=== PATIENT | female | born 1985 | race Caucasian/White ===

== ENCOUNTER → 2019-10-17 | Outpatient (CLI) | payer MEDICARE, OTHER ==
[~2019-10-17] MED LIST: DIPH25CA58 PO; GABA600T7 PO; MELA10TA3 PO; PANT20TA2 PO; SIMV40TA18 PO; SIMV80TA PO
--- NOTE | 2019-10-17 21:57 | PAIN ---
DATE OF SERVICE: 10/17/2019 INITIAL CONSULTATION FOR PAIN CLINIC CHIEF COMPLAINT: 1. Neck pain, upper extremity pain and headaches. 2. Low back and bilateral lower extremity pain. HISTORY OF PRESENT ILLNESS: This is a 34-year-old female who presents with history of pain for many years. At age 10, reports she had an accident as a cheerleader, fell and broke C5 and C6 vertebrae, then fell more recently and has fracture in her lumbar spine as well. The patient reports she has had pain for many, many years, causing migraine headaches, worse of the pain in the base of the neck and shoulders, upper extremities with radiation to both the arms on occasion, but not constantly. The patient also reports pain in the low back radiating to bilateral lower extremities, more on the right than the left in the posterior gluteus and thighs as well. The patient reports it is worse with walking, standing, changing positions, difficulty with sleeping at night, awakens her at least once or twice a night, does not affect her bowel or bladder control, and it does not affect her ability to walk significantly. She has had physical therapy in the past as well as chiropractic treatment, which has been ongoing for many years, which is temporarily helpful, but not overall. The patient reports she has taken Tylenol No. 3, hydrocodone, Flexeril and none of which have decreased the pain very significantly, all within the last 3 months or so. The patient reports the pain is constant, sharp, stabbing, throbbing in the neck and shoulders, tingling and burning in the low back radiating to the lower extremities, radiating to the upper extremities, aching in quality as well. The patient rates her disability rating from 0-10, 10 being the worst, is an 8 with family and home responsibilities, recreation, social activity, occupation and sexual behavior, 4 with self-care and life support activities. The patient has not had any diagnostic studies at this time within the cervical distribution, upper back, mid back or low back. The patient reports no loss of motor function, but significant fatigability in the upper extremities with repetitive motions, reaching over her head with her hands or lifting items up above the level of the waist, also increased pain in the lower extremities with walking, standing, getting up from a seated position, especially in the low back. PAST MEDICAL HISTORY: Significant for cigarette smoking half pack a day for the past 20 years, cervical cancer in 2012, hiatal hernia, hypercholesterolemia, bipolar disorder, depression. PREVIOUS SURGERY: Includes hysterectomy in 2012, cholecystectomy in 2010 and a laparotomy in 2006. CURRENT MEDICATIONS: Include simvastatin, Zocor, melatonin, gabapentin, Benadryl and Protonix. ALLERGIES: THE PATIENT IS ALLERGIC TO IMITREX, MORPHINE, SUDAFED, LATEX AND SILK TAPES, NUBAIN, GUAIFENESIN, DILAUDID AND DEXTROMETHORPHAN. FAMILY HISTORY: Significant for strokes, diabetes, hypertension, cancer, cholesterol, heart attacks. SOCIAL HISTORY: The patient does not drink alcohol. Smokes about half a pack of cigarettes per day and continues to smoke for past 20 years. Does not use any illegal, illicit or recreational drugs. She is , lives with her spouse, has 3 children living at home, lives locally in [place], [place]. REVIEW OF SYSTEMS: The patient's review of systems is positive for those items mentioned in history of present illness. All systems reviewed and otherwise negative. It is complete, full and well documented on the patient's chart. The patient reports she is on disability currently related to her current pain condition. PHYSICAL EXAMINATION: VITAL SIGNS: The patient's blood pressure 141/98, pulse 74, respirations 18, temperature 98.2 degrees Fahrenheit, height is 5 feet 7 inches, weighs 240 pounds. GENERAL: The patient is awake, alert, oriented, appropriate, very pleasant demeanor. HEENT: Head shows normocephalic, atraumatic. Extraocular movements are intact and symmetrical. Oral cavity shows mucous membranes moist and pink. Dentition is intact. NECK: Shows anterior throat supple without palpable lymphadenopathy noted. Swallow reflex symmetrical. CHEST: Shows normal on inspection. Breath sounds clear to auscultation bilaterally. HEART: Shows S1, S2 clear. No murmurs auscultated. ABDOMEN: Soft, nontender, nondistended. No palpable organomegaly is noted. No rebound or guarding demonstrated. BACK: Shows spine grossly in the midline. Normal appearing cervical lordotic curvature, thoracic kyphotic curvature and lumbar lordotic curvature. No previous surgical scars are noted. Paraspinous musculature in the cervical distribution shows symmetrical on inspection, with palpation shows some moderate tenderness diffusely bilaterally, but only diffusely without significant radiation. The patient has good rotational motion of cervical spine, both laterally greater than 45 degrees closer to 90 degrees as well as full extension, full forward flexion with some moderate pulling and pain sensation with extension and flexion only in the base of the neck bilaterally, right equal to left. The patient's low back shows lumbar paraspinous musculature shows symmetrical on inspection, with palpation shows some moderate tenderness diffusely throughout the upper, middle and lower distribution of paraspinous muscles bilaterally, but without trigger points, without evidence of atrophy, hypertrophy or without asymmetry. The patient has good rotational motion of lumbar spine, both laterally greater than 10 degrees right and left as well as full extension, 10 degrees forward flexion and full forward flexion 45 degrees without significant pain reported. No tenderness over the spinous processes, sacrum or sacroiliac regions. EXTREMITIES: The patient's upper extremities show deep tendon reflexes 2+ in the biceps and triceps tendons. 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 Peripheral pulses are 2+ radial distribution. Shoulder shrug is strong and intact without loss of strength on resistance with some mild pain in the bilateral shoulders, the superior medial aspect of the trapezius, but without loss of strength on resistance. This is true with abduction of the shoulders 90 degrees as well bilaterally. Lower extremities show deep tendon reflexes 1+ in the patellar and tendo calcaneus tendons. Motor exam is strong with 5/5 dorsiflexion, extension, quadriceps and hamstring flexion. Peripheral pulses are 1+ posterior tibia. No peripheral edema bilaterally. Lower extremities are warm and dry to touch, equal in color and appearance. Straight leg raising noted to be negative for reproduction of radicular symptoms bilaterally. Gaenslen's and Mirza's maneuvers are negative bilaterally as well. The patient is able to stand, stand on her toes without significant difficulty or loss of balance, walks with a normal appearing gait, does not appear to favor the right or left lower extremity with ambulation, not using any assistive devices such as canes or walkers to ambulate. SKIN: Shows warm and dry, good turgor. No edema. No sores, rashes or bruising throughout. IMPRESSION: 1. This is a 34-year-old female with long history of pain in the base of the neck, shoulders, upper back, migraines as well as low back pain and bilateral lower extremity pain. 2. Cigarette smoking. 3. History of cervical cancer. 4. Depression and bipolar disorder. PLAN: Options were discussed with the patient including conservative medical management, physical therapies and interventional techniques and first we will obtain MRI scans of both the cervical and lumbar spine as she has had no diagnostic studies performed at this time and better differentiate any abnormalities in these regions that could be responsible for some of the pain conditions in these regions. Once these are obtained, we will have the patient return and discuss the results and proceed from there. PRATEEK COLINDRES MD DR: RADHA/julita JOB#: [id number] / [id number]
== END | disposition home or self-care (01) ==
LOC: PNCL 10:48
PROVIDERS: ATTEND Anesthesiology
DX: M54.2 Cervicalgia (principal); M54.5 Low back pain; M79.605 Pain in left leg; M79.604 Pain in right leg; R51 Headache; F31.9 Bipolar disorder, unspecified; F17.210 Nicotine dependence, cigarettes, uncomplicated; Z85.41 Personal history of malignant neoplasm of cervix uteri; E78.00 Pure hypercholesterolemia, unspecified; Z88.5 Allergy status to narcotic agent; Z88.2 Allergy status to sulfonamides; Z88.8 Allergy status to other drugs, medicaments and biological substances; Z90.49 Acquired absence of other specified parts of digestive tract; Z90.710 Acquired absence of both cervix and uterus; Z91.040 Latex allergy status
CPT/HCPCS: G0463

== ENCOUNTER → 2019-10-22 | Outpatient (CLI) | payer MEDICARE, OTHER ==
--- NOTE | 2019-10-22 15:34 | RAD ---
CERVICAL SPINE WO CONTRAST History: Neck pain. Bilateral hand radiculopathy. Technique: Multiplanar, multi sequential noncontrast MR imaging was performed of the cervical spine. Comparison: None Findings: Normal vertebral body height and alignment. No fracture. No pathologic signal abnormality within the cervical spinal cord. Enlarged left level 2 lymph node measures 1.4 x 1.3 cm. C2-C3: No canal or neuroforaminal narrowing. C3-C4: No canal narrowing. Right uncovertebral hypertrophy. Mild right neuroforaminal narrowing. No left neuroforaminal narrowing. C4-C5: Small posterior disc bulge. No canal narrowing. No neuroforaminal narrowing. C5-C6: Small posterior disc bulge. Minimal cord flattening. No canal narrowing. Uncovertebral hypertrophy. Mild right neuroforaminal narrowing. No left neuroforaminal narrowing. C6-C7: Posterior disc bulge. Mild cord flattening. No canal narrowing. Uncovertebral hypertrophy on the right. Mild right neuroforaminal narrowing. No left neuroforaminal narrowing. C7-T1: No canal or neuroforaminal narrowing. Impression: 1. Mild multilevel cervical spondylosis most prominent C5-C6 and C6-C7. 2. Enlarged left level [address] soft tissue neck with contrast to further evaluate. Electronically signed by: Holland Byers DO (10/22/2019 3:32 PM) [email or web address]
--- NOTE | 2019-10-22 15:40 | RAD ---
LUMBAR SPINE WO CONTRAST History: Low back pain. Technique: Multiplanar, multi sequential MR imaging was performed of the lumbar spine. Comparison: None Findings: T12 superior endplate Schmorl's node. Chronic anterior T11 and T12 vertebral body wedging. No acute fracture. No pathologic marrow placing process. L5-S1 degenerative endplate changes. Conus terminates at the normal location. No evidence of nerve root clumping. L1-L2: No canal or neuroforaminal narrowing. L2-L3: No canal or neuroforaminal narrowing. L3-L4: No canal or neuroforaminal narrowing. L4-L5: Disc height loss. Small posterior disc bulge. Central annular fissure. Mild facet arthropathy. No canal narrowing. No neuroforaminal narrowing. L5-S1: Disc height loss. Broad-based disc bulge. Central annular fissure. No canal narrowing. Mild bilateral neural foraminal narrowing. Impression: 1. Mild lower lumbar spondylosis most prominent L5-S1. 2. Mild L5-S1 neural foraminal narrowing. Electronically signed by: Holland Byers DO (10/22/2019 3:37 PM) [facility]
== END | disposition home or self-care (01) ==
LOC: MRI 14:25
PROVIDERS: ATTEND Anesthesiology
DX: M47.22 Other spondylosis with radiculopathy, cervical region (principal); M47.816 Spondylosis without myelopathy or radiculopathy, lumbar region; M48.061 Spinal stenosis, lumbar region without neurogenic claudication
CPT/HCPCS: 72141; 72148

== ENCOUNTER → 2019-10-23 | Outpatient (CLI) | payer MEDICARE, OTHER ==
--- NOTE | 2019-10-24 00:01 | PAIN ---
DATE OF SERVICE: 10/23/2019 PROGRESS NOTE FOR PAIN CLINIC DIAGNOSES: 1. Cervical radiculopathy with cervical degenerative disk disease. 2. Lumbar radiculopathy with lumbar degenerative disk disease. HISTORY OF PRESENT ILLNESS: The patient is a 34-year-old female who returns for followup status post initial evaluation and MRI scans ordered, which are returned now. The patient has returned for review of the MRI scans today. We discussed both the cervical and lumbar spine findings with her showing mild multiple cervical spondylosis, most prominent at C5-C6 and C6-C7 and lumbar spine showing mild lower lumbar spondylosis, most prominent at L5-S1 with small disk bulge at L4-L5 as well. The patient reports still significant pain in the base of neck and shoulders bilaterally as well as low back pain and lower extremity pain bilaterally in the posterior gluteus, posterior lateral thighs. The patient reports no new motor or sensory deficits, no new changes. The patient rates her pain as a 10 on a scale of 10 at its worst over the past week, 10 on average, 7 at its least and is a 7 today. The patient reports no new motor or sensory deficits, no new bowel or bladder incontinence or other complaints. The patient describes the pain in the neck and the back as aching, sharp, tight, stabbing with some shooting pains in the upper extremities as well as lower extremities, becoming more constant, severe, unbearable with activity, better with sitting or lying down, generally it does not awaken her from sleep, however. PHYSICAL EXAMINATION: VITAL SIGNS: The patient's blood pressure is 138/94, pulse 89, respirations 16, temperature is 98.0 degrees Fahrenheit, height is 5 feet 7 inches, and weight is 240 pounds. GENERAL: The patient is awake, alert, oriented, appropriate, very pleasant demeanor. HEENT: Head shows normocephalic, atraumatic. Extraocular movements are intact and symmetrical. Oral cavity: Mucous membranes are moist and pink. Dentition is intact. NECK: Shows anterior throat supple without palpable lymphadenopathy noted. Swallow reflex symmetrical. CHEST: Shows normal on inspection. Breath sounds are clear bilaterally. HEART: Shows S1, S2 clear. ABDOMEN: Soft, nontender, and nondistended. BACK: Shows spine grossly in the midline. Cervical paraspinous muscle shows symmetrical on inspection, with palpation shows some moderate tenderness diffusely in the middle and lower distribution of paraspinous muscles and into the superior medial trapezius bilaterally, but without radiation. The patient shows full rotational motion of cervical spine, both laterally as well as extension and flexion without significant increase in pain. EXTREMITIES: Lower back shows paraspinous musculature of the lumbar distribution symmetrical with some moderate tenderness throughout the upper, middle and lower distribution of paraspinous muscles bilaterally, again diffusely without radiation or asymmetry. No trigger points noted bilaterally. No tenderness over the sacrum or sacroiliac regions. EXTREMITIES: The patient's upper extremities show upper extremity deep tendon reflexes are 2+ in the biceps, triceps tendons. Motor exam is approximately 3-4 on a scale of 5 bilaterally. Lower extremities show 5/5 at dorsiflexion, extension, quadriceps and hamstring flexion. Peripheral pulses are 2+ radial, 1+ posterior tibial. No edema in upper or lower extremities bilaterally. PLAN: Options were discussed with the patient. The patient's old chart was reviewed as her current medication regimen updated. Current review of systems updated today as well. We will have the patient return for cervical epidural steroid injections as her chief complaint is neck and upper extremity pain. The patient does have 2 young children with her today. I would like to reschedule when they are in school. We will make these arrangements and have the patient return in approximately 1 week for cervical epidural steroid injection at that time. The patient is also requesting a prescription for cyclobenzaprine. We will give her a prescription for the cyclobenzaprine 10 mg 1 tablet up to 3 times daily as directed. The patient was given instructions as well as side effects to be aware of with the medication and will follow up in approximately 1 week as scheduled. PRATEEK COLINDRES MD DR: RADHA/julita JOB#: [id number] / [id number]
== END | disposition home or self-care (01) ==
LOC: PNCL 14:20
PROVIDERS: ATTEND Anesthesiology
DX: M51.16 Intervertebral disc disorders with radiculopathy, lumbar region (principal); M50.10 Cervical disc disorder with radiculopathy, unspecified cervical region
CPT/HCPCS: G0463

== ENCOUNTER → 2019-10-30 | Outpatient (CLI) | payer MEDICARE, OTHER ==
[~2019-10-30] MED LIST changes: +HYDR-2761 PO; +IOHEXOL 300 MG/ML 100ML VIAL. IV ONE; +OXYC1TAB15 PO
--- NOTE | 2019-10-30 15:16 | [facility] ---
EXAM: CT Neck with IV contrast INDICATION: Cervical adenopathy seen on recent MRI TECHNIQUE: Multiple contiguous axial images were obtained of the neck with the use of IV contrast. Post-processing reconstructed images were obtained for interpretation. All CT scans performed at this facility utilize dose optimization techniques as appropriate to the exam, including the following: Automated exposure control and adjustment of the mA and/or KV according to patient size (this includes techniques or standardized protocols for targeted exams where dose is indication/reason for exam). IV CONTRAST: Administered COMPARISON: C-spine MRI of 10/22/2019 FINDINGS: INTRACRANIAL STRUCTURES & ORBITS: Unremarkable. AERODIGESTIVE: The nasal cavity, nasopharynx, oral cavity, oropharynx, hypopharynx, larynx, and visualized trachea and esophagus demonstrate no masses or abnormal enhancement. CERVICAL LYMPH NODES & SOFT TISSUES: Cervical adenopathy is redemonstrated, largest lymph nodes at level 2 measuring 1.5 cm short axis diameter. THYROID & SALIVARY GLANDS: Unremarkable. LUNG APICES: Minimal groundglass attenuation to the lung apices is present. OSSEOUS: Unremarkable IMPRESSION: Cervical adenopathy with no neck mass or fluid collection noted. Correlate for any viral infection currently. Electronically signed by: Linda Lilly MD (10/30/2019 3:14 PM) [facility]
== END | disposition home or self-care (01) ==
LOC: KCIC CT 09:18
PROVIDERS: ATTEND Family Medicine
DX: R59.0 Localized enlarged lymph nodes (principal)
CPT/HCPCS: 70491; Q9967

== ENCOUNTER → 2019-10-31 | Outpatient (CLI) | payer MEDICARE, OTHER ==
[~2019-10-31] MED LIST changes: +IOHEXOL 180 MG/ML 10 ML VIAL. ONE; -IOHEXOL 300 MG/ML 100ML VIAL. IV ONE; -OXYC1TAB15 PO; +methylPREDNISolone ACETATE 40 MG/ML VIAL. ONE; +methylPREDNISolone ACETATE 80 MG/ML VIAL. ONE
--- NOTE | 2019-10-31 11:41 | PAIN ---
DATE OF SERVICE: 10/31/2019 PROGRESS NOTE FOR PAIN CLINIC DIAGNOSES: 1. Cervical radiculopathy with cervical degenerative disk disease. 2. Lumbar radiculopathy with lumbar degenerative disk disease. HISTORY OF PRESENT ILLNESS: The patient is a 34-year-old female, who returns for followup, status post evaluation and returns today for cervical epidural steroid injection. The patient reports still significant pain in the base of the neck and into the shoulders bilaterally and in the upper extremities as previously. The patient reports no new motor or sensory deficits. Reports her pain is 10 on a scale of 10 at its worst over the past week, 8 on average, 6 at its least and is an 8 today. The patient reports it is aching, dull, tight, shooting across the shoulders and neck as well as into the upper extremities, burning, cramping, stabbing pain, also some pain in the low back, which is becoming more dull and shooting as well as tight and constant. The patient reports it is better with sitting or lying down, awakens her from sleep at least 4-5 times at night with the neck and shoulders. The patient reports no new motor or sensory deficits, no new bowel or bladder incontinence or other complaints. PHYSICAL EXAMINATION: VITAL SIGNS: The patient's blood pressure 137/85, pulse 101, respirations 18, temperature 97.4 degrees Fahrenheit, height is 5 feet 7 inches, weight is 246 pounds. GENERAL: The patient is awake, alert, oriented, appropriate, very pleasant demeanor. HEENT: Shows normocephalic, atraumatic. Extraocular movements are intact and symmetrical. Oral cavity: Mucous membranes moist and pink. Dentition is intact. NECK: Shows anterior throat supple without palpable lymphadenopathy noted. Swallow reflex symmetrical. CHEST: Shows normal on inspection. Breath sounds are clear to auscultation bilaterally. HEART: Shows S1, S2 clear. No murmurs auscultated. ABDOMEN: Soft, nontender, nondistended. No palpable organomegaly is noted. No rebound or guarding demonstrated. BACK: Shows spine grossly in the midline. Cervical paraspinous muscle shows symmetrical on inspection, on palpation shows some moderate tenderness diffusely bilaterally but only diffusely without significant radiation. The patient has good rotational motion of cervical spine, both laterally as well as extension and flexion without significant increase in pain. EXTREMITIES: The patient's upper extremities show deep tendon reflexes at 2+ in the biceps and triceps tendons. 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 Lower extremities show deep tendon reflexes 1+ in the patellar and tendo calcaneus tendons. Motor exam is strong with 5/5 dorsiflexion, extension, quadriceps and hamstring flexion. Peripheral pulses are 2+ radial and 1+ posterior tibial. Options were discussed with the patient. The patient's old chart was reviewed as her current medication regimen updated. Current review of systems updated today as well. We will proceed with a cervical epidural steroid injection today with fluoroscopic guidance. Risks were again discussed including, but not limited to bleeding, infection, possibility of epidural hematoma, subsequent neurological compromise, dural punctures, headaches, spinal cord and/or nerve damage, side effects of steroid medication as well as poor results regarding pain control. The patient understands and wished to proceed. The patient will return to clinic in approximately 2 weeks for followup. She was counseled on return appointment, activity level and side effects to be aware of. DIAGNOSES: Cervical radiculopathy with cervical degenerative disk disease. PROCEDURE: Cervical epidural steroid injection, translaminar approach at C6-C7 level using C-arm fluoroscopic guidance under sterile prep and drape using local anesthetic. MEDICATION INJECTED: A total of 120 mg Depo-Medrol plus 5 mL of preservative-free normal saline and 2 mL of contrast. CONDITION AT DISCHARGE: Stable. The patient tolerated procedure well, had no complications. PRATEEK COLINDRES MD DR: RADHA/julita JOB#: [id number] / [id number]
== END ==
LOC: PNCL 09:05
PROVIDERS: ATTEND Anesthesiology
DX: M50.123 Cervical disc disorder at C6-C7 level with radiculopathy (principal); M51.16 Intervertebral disc disorders with radiculopathy, lumbar region
CPT/HCPCS: 62321; J1030; J1040; Q9965

== ENCOUNTER 2019-11-05 15:20 | Emergency (ER) | payer MEDICARE, OTHER ==
[~2019-11-05] VITALS: Ht 170.2 cm; Wt 108.6 kg
[~2019-11-05 15:20] MED LIST changes: -IOHEXOL 180 MG/ML 10 ML VIAL. ONE; -methylPREDNISolone ACETATE 40 MG/ML VIAL. ONE; -methylPREDNISolone ACETATE 80 MG/ML VIAL. ONE
[2019-11-05 16:40] VITALS: BP 132/82
[2019-11-05] MEDS: IV NORMAL SALINE 1000ML BAG 1,000 ML IV SCH (17:00)
[2019-11-05] MEDS: fentaNYL PF VIAL 100 MCG/2 ML VIAL IVP ONE (17:00)
[2019-11-05 17:05] LABS: BASO % 0 % (0-3); EOS # 0.1 x10^3/uL (0.0-0.7); EOS % 0 % (0-3); HEMATOCRIT 40.7 % (36.0-47.0); HEMOGLOBIN 13.6 g/dL (12.0-15.5); LYMPH # 3.7 x10^3/uL (1.0-4.8); LYMPH % 28 % (24-48); MEAN CORPUSCULAR HEMOGLOBIN 30 pg (25-35); MEAN CORPUSCULAR HGB CONC 34 g/dL (31-37); MEAN CORPUSCULAR VOLUME 90 fL (79-100); MONO # 0.7 x10^3/uL (0.0-1.1); MONO % 5 % (0-9); NEUT # 8.9 x10^3/uL (1.8-7.7); NEUT % 66 % (31-73); PLATELET COUNT 165 x10^3/uL (140-400); RED BLOOD COUNT 4.51 x10^6/uL (3.50-5.40); RED CELL DISTRIBUTION WIDTH 13.9 % (11.5-14.5); WHITE BLOOD COUNT 13.4 x10^3/uL (4.0-11.0)
[2019-11-05 17:06] LABS: BILIRUBIN,URINE NEGATIVE (NEG); CLARITY,URINE CLOUDY; COLOR,URINE YELLOW; NITRITE,URINE NEGATIVE (NEG); PROTEIN,URINE NEGATIVE (NEG-TRACE); UROBILINOGEN,URINE 0.2 mg/dL (0.2 mg/dL)
[2019-11-05 17:12] LABS: SQUAMOUS EPITHELIAL CELL,UR MANY /LPF
[2019-11-05 17:13] LABS: CALCIUM 8.4 mg/dL (8.5-10.1); CREATININE 0.8 mg/dL (0.6-1.0); GFR 81.2; POTASSIUM 3.6 mmol/L (3.5-5.1)
[2019-11-05 17:13] LABS: BACTERIA,URINE MODERATE /HPF (0-FEW)
[2019-11-05 17:16] LABS: PROTHROMBIN TIME PATIENT 11.5 SEC (11.7-14.0)
[2019-11-05 17:21] LABS: ALBUMIN 3.4 g/dL (3.4-5.0); ALBUMIN/GLOBULIN RATIO 1.1 (1.0-1.7); TOTAL BILIRUBIN 0.2 mg/dL (0.2-1.0); TOTAL PROTEIN 6.4 g/dL (6.4-8.2)
--- NOTE | 2019-11-05 17:39 | PHYS DOC ---
Past Medical History Past Medical History: Anxiety, Bipolar, Depression, Migraines Past Surgical History: Cholecystectomy, Hysterectomy Smoking Status: Current Every Day Smoker Alcohol Use: Occasionally Adult General Chief Complaint Chief Complaint: ABDOMINAL PAIN HPI HPI Patient is a 34 year old female who presents with went to the pain management clinic and had a cervical epidural done on this past Tuesday by Dr. Fowler. Patient states that he needs to begin having a really bad headache that is better when she is laying down when she is up and standing up and moving or sneezing and coughing becomes unbearable and she's been having neck stiffness also. She states she went to [facility] and they gave her some medications for migraine that did not help and they called Dr. Fowler in he didn't think it was related and she was sent home. She states she does have photophobia. She states the headache is generalized all over. She states she's been drinking plenty of fluids using ice and water naproxen and hydrocodone. Last naproxen was at noon. She denies numbness or tingling, incontinence, vision changes, chest pain, shortness of air, fever, abdominal pain, nausea, vomiting, diarrhea, chills, focal weakness. Rates her pain a 10 out of 10. Review of Systems Review of Systems Eyes: Denies change in visual acuity, redness, or eye pain. Photophobia [] Neurologic: headache, denies focal weakness or sensory changes [] All other systems were reviewed and found to be within normal limits, except as documented in this note. Current Medications Current Medications Current Medications Medications (Trade) Dose Ordered Sig/[facility] Start Time Stop Time Status Last Admin Dose Admin Diphenhydramine HCl (Benadryl) 25 mg 1X ONCE 11/05/19 17:30 11/05/19 17:31 DC 11/05/19 18:17 25 MG Fentanyl Citrate (Fentanyl 2ml Vial) 50 mcg 1X ONCE 11/05/19 17:00 11/05/19 17:01 DC 11/05/19 17:00 50 MCG Ketorolac Tromethamine (Toradol 30mg Vial) 30 mg 1X ONCE 11/05/19 17:30 11/05/19 17:31 DC 11/05/19 18:18 30 MG Prochlorperazine Edisylate (Compazine) 10 mg 1X ONCE 11/05/19 17:30 11/05/19 17:31 DC 11/05/19 18:18 10 MG Sodium Chloride 1,000 ml @ 1,000 mls/hr Q1H 11/05/19 16:47 11/05/19 17:46 DC 11/05/19 17:00 1,000 MLS/HR Allergies Allergies Allergies Coded Allergies Type Severity Reaction Last Updated Verified dextromethorphan Allergy Severe 11/05/19 Yes guaifenesin Allergy Severe 11/05/19 Yes pseudoephedrine Allergy Severe Anaphylaxis 11/05/19 Yes hydromorphone Allergy Intermediate Itching 11/05/19 Yes latex Allergy Intermediate 11/05/19 Yes morphine Allergy Intermediate Itching 11/05/19 Yes nalbuphine Allergy Intermediate Itching 11/05/19 Yes sumatriptan Allergy Intermediate 11/05/19 Yes Uncoded Allergies Type Severity Reaction Last Updated Verified silk tape Allergy Unknown 10/17/19 Physical Exam Physical Exam Constitutional: Well developed, well nourished, no acute distress, non-toxic appearance. [] HENT: Normocephalic, atraumatic, bilateral external ears normal, oropharynx moist, no oral exudates, nose normal. [] Eyes: PERRLA, EOMI, conjunctiva normal, no discharge. [] Neck: Normal range of motion, no tenderness, supple, no stridor. [] Cardiovascular:Heart rate regular rhythm, no murmur [] Lungs & Thorax: Bilateral breath sounds clear to auscultation [] Abdomen: Bowel sounds normal, soft, no tenderness, no masses, no pulsatile erica s. [] Skin: Warm, dry, no erythema, no rash. [] Back: No tenderness, no CVA tenderness. [] Extremities: No tenderness, no cyanosis, no clubbing, ROM intact, no edema. [] Neurologic: Alert and oriented X 3, normal motor function, normal sensory function, no focal deficits noted. [] Psychologic: Affect normal, judgement normal, mood normal. Normal Physical Exam[] Current Patient Data Vital Signs Vital Signs Date Time Temp Pulse Resp B/P (MAP) Pulse Ox O2 Delivery O2 Flow Rate FiO2 11/05/19 16:40 98.2 94 16 132/82 (99) 98 Room Air 98.2 Lab Values Laboratory Tests Test 11/05/19 16:20 11/05/19 16:40 Urine Collection Type Unknown Urine Color Yellow Urine Clarity Cloudy Urine pH 6.0 Urine Specific [place] 1.015 Urine Protein Negative mg/dL (NEG-TRACE) Urine Glucose (UA) 100 mg/dL (NEG) Urine Ketones (Stick) Negative mg/dL (NEG) Urine Blood Negative (NEG) Urine Nitrite Negative (NEG) Urine Bilirubin Negative (NEG) Urine Urobilinogen Dipstick 0.2 mg/dL (0.2 mg/dL) Urine Leukocyte Esterase Negative (NEG) Urine RBC 1-2 /HPF (0-2) Urine WBC 1-4 /HPF (0-4) Urine Squamous Epithelial Cells Many /LPF Urine Bacteria Moderate /HPF (0-FEW) Urine Mucus Marked /LPF White Blood Count 13.4 x10^3/uL (4.0-11.0) H Red Blood Count 4.51 x10^6/uL (3.50-5.40) Hemoglobin 13.6 g/dL (12.0-15.5) Hematocrit 40.7 % (36.0-47.0) Mean Corpuscular Volume 90 fL (79-100) Mean Corpuscular Hemoglobin 30 pg (25-35) Mean Corpuscular Hemoglobin Concent 34 g/dL (31-37) Red Cell Distribution Width 13.9 % (11.5-14.5) Platelet Count 165 x10^3/uL (140-400) Neutrophils (%) (Auto) 66 % (31-73) Lymphocytes (%) (Auto) 28 % (24-48) Monocytes (%) (Auto) 5 % (0-9) Eosinophils (%) (Auto) 0 % (0-3) Basophils (%) (Auto) 0 % (0-3) Neutrophils # (Auto) 8.9 x10^3/uL (1.8-7.7) H Lymphocytes # (Auto) 3.7 x10^3/uL (1.0-4.8) Monocytes # (Auto) 0.7 x10^3/uL (0.0-1.1) Eosinophils # (Auto) 0.1 x10^3/uL (0.0-0.7) Basophils # (Auto) 0.0 x10^3/uL (0.0-0.2) Prothrombin Time 11.5 SEC (11.7-14.0) L Prothrombin Time INR 0.9 (0.8-1.1) Sodium Level 142 mmol/L (136-145) Potassium Level 3.6 mmol/L (3.5-5.1) Chloride Level 107 mmol/L (98-107) Carbon Dioxide Level 26 mmol/L (21-32) Anion Gap 9 (6-14) Blood Urea Nitrogen 11 mg/dL (7-20) Creatinine 0.8 mg/dL (0.6-1.0) Estimated GFR (Cockcroft-Gault) 81.2 BUN/Creatinine Ratio 14 (6-20) Glucose Level 169 mg/dL (70-99) H Calcium Level 8.4 mg/dL (8.5-10.1) L Total Bilirubin 0.2 mg/dL (0.2-1.0) Aspartate Amino Transferase (AST) 24 U/L (15-37) Alanine Aminotransferase (ALT) 42 U/L (14-59) Alkaline Phosphatase 63 U/L (46-116) Total Protein 6.4 g/dL (6.4-8.2) Albumin 3.4 g/dL (3.4-5.0) Albumin/Globulin Ratio 1.1 (1.0-1.7) Laboratory Tests 11/05/19 16:40 Laboratory Tests 11/05/19 16:40 EKG EKG [] Radiology/Procedures Radiology/Procedures [] Impressions: [facility] [address] [place] [address] IMAGING REPORT Signed PATIENT: JENNA CULLEN ACCOUNT: [id number] : 1985 LOCATION: ER AGE: 34 SEX: F EXAM STATUS: REG ER ORD. PHYSICIAN: DAYANARA GODOY APRN REASON: HEADACHE S/P CERVICAL EPIDURAL LAST TUESDAY PROCEDURE: CT HEAD AND CERVICAL SPINE WO CT Head W/O Contrast: History: Headache status post cervical epidural Comparison: none Axial images were obtained without contrast. The keith and white matter appears normal and symmetrical for the patients age. There is no mass effect, extraaxial fluid collections or hydrocephalus. There is no gross bleed. There is no focal loss of keith-white matter distinction to suggest acute ischemia, i.e. stroke. Impression: No acute findings. End impression CT C-Spine without contrast: Clinical History: Technique: Axial helical images of the cervical spine were obtained without contrast, axial coronal and sagittal reconstruction was performed. Findings: There is no loss of vertebral body stature. There is no prevertebral soft tissue swelling. The vertebral bodies are well aligned. The C1-C2 relationship is normal. The visualized osseous structures appear normal. There is mild reversal of the normal cervical lordosis which can be positional or can be secondary to muscle spasm. Evaluation of the central canal is limited without contrast. There is multiple small lymph nodes bilaterally and there is a lymph node anterior to the left sternocleidomastoid muscle that measures 1.0 cm in its short axis. Impression: 1. Mild lymphadenopathy of uncertain etiology. 2. No acute findings of the C-spine. End impression Clinical correlation suggested. PQRS Compliance Statement: One or more of the following individualized dose reduction techniques were utilized for this examination: 1. Automated exposure control 2. Adjustment of the mA and/or kV according to patient size 3. Use of iterative reconstruction technique Electronically signed by: Michelle Tadeo III, MD (11/05/2019 6:03 PM) [id number] DICTATED and SIGNED BY: MICHELLE TADEO III, MD DATE: 11/05/191802 Course & Med Decision Making Course & Med Decision Making Pertinent Labs and Imaging studies reviewed. (See chart for details) Alert and oriented. Speaks in full clear sentences. Skin pink warm and dry. Patient does have full range of motion of her neck. No tenderness to her neck. PERRLA. Moves all extremities equally with equal strength. Ambulatory with a steady gait. Negative NIH. Vital signs within normal limits. Lungs are clear to auscultation all lobes. Patient has a normal exam. I have called and spoke to Donnie with anesthesia and called his staff and no one feels comfortable doing a blood patch on the patient. We have called Dr Fowler off [place] and he is no longer there as the office is closed. We have tried the p ager for the doctor and it states disconnected. Anesthesia states to send the patient home and have her rest in bed and hydrate. After medications are given Patient's pain continues to be uncontrolled. Patient states she does not want to go home and follow up and continue with her pain. I will admit her to the hospital for pain control and consult anesthesiologist and Dr. Fowler. 1850: Patient is now refusing admission states she wants to go home. She states she will call Dr. Fowler in follow-up. Patient is stable but her pain is uncontrolled. I have told the patient will be best for her to stay in the hospital so she can get this taken care of and she can be observed. Patient is now refusing admission. [] Dragon Disclaimer Dragon Disclaimer This electronic medical record was generated, in whole or in part, using a voice recognition dictation system. Departure Departure Impression: Primary Impression: Headache Disposition: HOME, SELF-CARE Condition: STABLE Referrals: RAHUL SU (PCP) Patient Instructions: General Headache Without Cause Additional Instructions: Call Dr Fowler. Take medications as prescribed and with food. Scripts Oxycodone/Apap 5-325 (PERCOCET 5-325 MG TABLET ) 1 Each Tablet 1 TAB PO PRN Q6HRS PRN for PAIN, #10 TAB 0 Refills Prov: DAYANARA GODOY APRN 11/05/19 Problem Qualifiers Primary Impression: Headache Headache type: unspecified Headache chronicity pattern: episodic headache Intractability: intractable Qualified Codes: R51 - Headache DAYANARA GODOY APRN Nov 05, 2019 17:39
--- NOTE | 2019-11-05 18:05 | RAD ---
CT Head W/O Contrast: History: Headache status post cervical epidural Comparison: none Axial images were obtained without contrast. The keith and white matter appears normal and symmetrical for the patients age. There is no mass effect, extraaxial fluid collections or hydrocephalus. There is no gross bleed. There is no focal loss of keith-white matter distinction to suggest acute ischemia, i.e. stroke. Impression: No acute findings. End impression CT C-Spine without contrast: Clinical History: Technique: Axial helical images of the cervical spine were obtained without contrast, axial coronal and sagittal reconstruction was performed. Findings: There is no loss of vertebral body stature. There is no prevertebral soft tissue swelling. The vertebral bodies are well aligned. The C1-C2 relationship is normal. The visualized osseous structures appear normal. There is mild reversal of the normal cervical lordosis which can be positional or can be secondary to muscle spasm. Evaluation of the central canal is limited without contrast. There is multiple small lymph nodes bilaterally and there is a lymph node anterior to the left sternocleidomastoid muscle that measures 1.0 cm in its short axis. Impression: 1. Mild lymphadenopathy of uncertain etiology. 2. No acute findings of the C-spine. End impression Clinical correlation suggested. PQRS Compliance Statement: One or more of the following individualized dose reduction techniques were utilized for this examination: 1. Automated exposure control 2. Adjustment of the mA and/or kV according to patient size 3. Use of iterative reconstruction technique Electronically signed by: Vikash Steen III, MD (11/05/2019 6:03 PM) [id number]
[2019-11-05] MEDS: diphenhydrAMINE 50 MG/ML VIAL IVP ONE (18:17)
[2019-11-05] MEDS: KETOROLAC 30 MG/ML VIAL. IVP ONE (18:18)
[2019-11-05] MEDS: PROCHLORPERAZINE 10 MG/2 ML VIAL. IV ONE (18:18)
[2019-11-05] MEDS ORDERED: OXYC1TAB15 PO (18:58)
== END 2019-11-05 19:15 | disposition home or self-care (01) ==
LOC: ER 15:20
DX: G43.909 Migraine, unspecified, not intractable, without status migrainosus (principal); M43.6 Torticollis; F31.9 Bipolar disorder, unspecified; F41.9 Anxiety disorder, unspecified; F17.200 Nicotine dependence, unspecified, uncomplicated; Z88.5 Allergy status to narcotic agent; Z91.040 Latex allergy status; Z88.8 Allergy status to other drugs, medicaments and biological substances
CPT/HCPCS: 36415; 70450; 72125; 80053; 81001; 85025; 85610; 87086; 96374; 96375; 99285; J0780; J1200; J1885; J3010; J7030; 99284-25

== ENCOUNTER → 2019-11-07 | Outpatient (CLI) | payer MEDICARE, OTHER ==
[2019-11-05 16:40] VITALS: BP 132/82
[~2019-11-07] MED LIST changes: +IOHEXOL 180 MG/ML 10 ML VIAL. ONE; +OXYC1TAB15 PO
--- NOTE | 2019-11-08 01:09 | PAIN ---
DATE OF SERVICE: 11/07/2019 PROGRESS NOTE FOR PAIN CLINIC DIAGNOSES: 1. Post-dural puncture headache. 2. Cervical radiculopathy with cervical degenerative disc disease. HISTORY OF PRESENT ILLNESS: The patient is a 34-year-old female who returns for followup, last seen on 10/31/2019. The patient had cervical epidural third steroid injection at that time. Within about 2 days following the injections, the patient started to have some positional headache which was significant with pain in the neck, behind the eyes with some photophobia. This was temporized with some increased hydration, caffeine and administration of oral analgesics, which helped for a few days, but the pain has been returning. She has been to the Emergency Room twice now in the last few days with the same complaints. We discussed this with her this morning and had her come in for evaluation and potential epidural blood patch. The patient reports the pain is a 10 on a scale of 10 at its worst, 10 on average, 8 at its least and 8 when she is lying down, 10 with sitting up or standing up with the pain becomes significant, which has decreased fairly immediately, but only to a level of an 8 when lying down. The patient reports it is aching, sharp, tight, shooting, stabbing, severe, constant and becoming unbearable. She has had some nausea, but no vomiting. The patient reports no difficulty with any fevers. No difficulty with movement of the neck or rigidity. PHYSICAL EXAMINATION: VITAL SIGNS: The patient's blood pressure 115/74, pulse 93, respirations 16, temperature is 97.9 degrees Fahrenheit. GENERAL: The patient is awake, alert, oriented, appropriate, very pleasant demeanor. The patient preferring to lay down during the interview. HEENT: Exam shows normocephalic, atraumatic. Pupils equal, round, reactive to light. Extraocular movements are intact and symmetrical. Oral cavity shows mucous membranes moist and pink. NECK: Shows anterior throat supple. The patient shows full rotational motion of cervical spine, both laterally past 45 degrees closer to 90 degrees as well as full extension and full forward flexion without significant tenderness or difficulty or pain. CHEST: Shows normal on inspection. Breath sounds are clear to auscultation bilaterally. HEART: Shows S1, S2 clear. ABDOMEN: Soft, nontender, nondistended. BACK: Shows spine grossly in the midline. Cervical paraspinous muscle shows symmetrical on inspection with some mild tenderness diffusely in the inferior aspect of the cervical paraspinous musculature, but without radiation. EXTREMITIES: Upper extremities show deep tendon reflexes 2+ in the biceps and triceps tendons. 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 Peripheral pulses are 2+ radial. No peripheral edema is noted. PLAN: Options were discussed with the patient. The patient's old chart was reviewed as her current medication regimen updated. Current review of systems updated today as well and we will proceed with a cervical epidural blood patch. Risks were discussed including, but not limited to, bleeding, infection, possibility of epidural hematoma and subsequent neurological compromise, dural puncture headaches and worsening of spinal headache as well as compression of the cervical cord with the blood patch and sequelae as well as poor results regarding pain control. The patient understands and wished to proceed. The patient will return to clinic in approximately 1 week as scheduled. We will have her follow up at that time. Noted the patient had almost immediate decrease in pain by about 50% of the headache after the blood patch was performed. The patient is allowed to lie down for approximately 10 minutes following the injection, was slowly sat up with no significant difficulty and much decreased severity of headache with sitting in the upright position. DIAGNOSIS: Post-dural puncture headache, cervical. PROCEDURE: Cervical epidural blood patch under sterile prep and drape using local anesthetic and C-arm fluoroscopic guidance for the cervical spine using 5 mL of the patient's blood from left AC vein with sterile transfer and draw, placed sterilely into the epidural space at C6-C7 level, which was entered with preservative-free normal saline, loss of resistance technique with negative aspiration. Contrast shows good spread in the epidural space posteriorly at that level, both AP and lateral views. Blood was then transferred into the epidural space. [place] were removed. Sterile bandage was applied. The patient tolerated the procedure well, again had a significant decrease in headache following the procedure and was discharged in good stable under her own power with her to drive home. PRATEEK COLINDRES MD DR: RADHA/julita JOB#: [id number] / [id number]
== END ==
LOC: PNCL 13:50
PROVIDERS: ATTEND Anesthesiology
DX: M50.123 Cervical disc disorder at C6-C7 level with radiculopathy (principal); G44.89 Other headache syndrome
CPT/HCPCS: 62273; Q9965

== ENCOUNTER → 2020-01-08 | Outpatient (CLI) | payer MEDICARE, OTHER ==
[~2020-01-08] MED LIST changes: +methylPREDNISolone ACETATE 40 MG/ML VIAL. ONE; +methylPREDNISolone ACETATE 80 MG/ML VIAL. ONE
--- NOTE | 2020-01-08 11:41 | PAIN ---
DATE OF SERVICE: 01/08/2020 PROGRESS NOTE FOR PAIN CLINIC DIAGNOSES: 1. Cervical radiculopathy with cervical degenerative disk disease. 2. Lumbar radiculopathy with lumbar degenerative disk disease. HISTORY OF PRESENT ILLNESS: The patient is a 34-year-old female who returns for followup status post cervical epidural steroid injection x 1 and the patient had a post-dural puncture headache after that and followed up with a blood patch. She has done very well after that. The patient reports her pain was gone for about 2 weeks, but 90% improvement. The pain is returning now in the base of neck and shoulder. Also complains of low back pain and bilateral lower extremity pain. The patient reports no new motor or sensory deficits, no new bowel or bladder incontinence. Reports pain in the neck and shoulders, upper extremities is a 10 on a scale of 10 at its worst, 8 on average, is a 5 at its least, describes headache as well and also pain in the shoulders and neck, aching and sharp and tight, tingling, burning and stabbing at times in the arms, radiating in the upper extremities as well as constant and severe in the low back. The patient reports no new motor or sensory deficits. The patient reports it does not generally awaken her from sleep at night, much worse with activity, standing and walking. She has been very active as she has had children at home from school here recently. The patient reports no new motor or sensory deficits, no new bowel or bladder incontinence or other complaints. PHYSICAL EXAMINATION: VITAL SIGNS: The patient's blood pressure is 137/89, pulse 94, respirations 18, temperature is 98.2 degrees Fahrenheit. Height is 5 feet 6 inches. Weight is 254 pounds. GENERAL: The patient is awake, alert, oriented, appropriate, very pleasant demeanor. HEENT: Shows normocephalic, atraumatic. Extraocular movements are intact and symmetrical. Oral cavity shows mucous membranes moist and pink. Dentition is intact. NECK: Shows anterior throat supple without palpable lymphadenopathy noted. Swallow reflex symmetrical. CHEST: Shows normal on inspection. Breath sounds are clear bilaterally. HEART: Shows S1 and S2 clear. No murmurs auscultated. ABDOMEN: Soft, nontender, and nondistended. No palpable organomegaly is noted. No rebound or guarding demonstrated. BACK: Shows spine grossly in the midline. Normal appearing thoracic kyphosis, cervical lordotic curvature and lumbar lordotic curvature. Cervical paraspinous muscle shows symmetrical on inspection, on palpation shows some moderate tenderness diffusely bilaterally, but going diffusely without significant radiation. The patient shows good rotational motion of the cervical spine without significant guarding, but with some minor tenderness with extension, but not with forward flexion. EXTREMITIES: The patient's upper extremities showed deep tendon reflexes at 2+ in the biceps and triceps tendons. Motor exam is approximately 4 on a scale of 5, but equal and symmetrical with meter reader inspector strength, bicep and tricep flexion. Peripheral pulses are 2+ radial. No peripheral edema is noted. Options were discussed with the patient. The patient's old chart was reviewed as her current medication regimen updated. Current review of systems updated today as well. We will proceed with a second in the series of cervical epidural steroid injection today with fluoroscopic guidance. Risks were again discussed including, but not limited to bleeding, infection, possibility of epidural hematoma, subsequent neurological compromise, dural puncture, headaches, spinal cord and/or nerve damage, side effects of steroid medication and poor results regarding pain control. The patient understands and wished to proceed. The patient will return to clinic in approximately 2 weeks for followup. She was counseled on return appointment, activity level and side effects to be aware of. DIAGNOSIS: Cervical radiculopathy with cervical degenerative disk disease. PROCEDURE: Cervical epidural steroid injection, translaminar approach at C6-C7 level using C-arm fluoroscopic guidance under sterile prep and drape using local anesthetic. MEDICATIONS INJECTED: A total of 120 mg Depo-Medrol plus 5 mL of preservative-free normal saline and 2 mL of contrast. CONDITION AT DISCHARGE: Stable. The patient tolerated the procedure well and had no complications. PRATEEK COLINDRES MD DR: RADHA/julita JOB#: [id number] / [id number]
== END ==
LOC: PNCL 10:31
PROVIDERS: ATTEND Anesthesiology
DX: M50.123 Cervical disc disorder at C6-C7 level with radiculopathy (principal); M51.16 Intervertebral disc disorders with radiculopathy, lumbar region
CPT/HCPCS: 62321; J1030; J1040; Q9965